=== PATIENT | female | born 1945 | race Caucasian/White ===

== ENCOUNTER → 2020-04-17 13:30 | Outpatient (CLI) | payer MEDICARE, OTHER, SELFPAY ==
--- NOTE | ~2020-04-17 | MM_ITS ---
EXAMINATION: MM screening christopher BI w wily HISTORY: Screening mammogram, history of left breast cancer TECHNIQUE: Craniocaudal and mediolateral oblique 3-D tomosynthesis images were obtained and synthetic 2-D images were generated. CAD analysis was submitted and interpreted. COMPARISON: 02/19/2019, 01/19/2018, 01/13/2017 BREAST PARENCHYMAL COMPOSITION: There are scattered areas of fibroglandular density. FINDINGS: There are stable lumpectomy changes of the left breast. There is no evidence of suspicious mass, calcification, or architectural distortion to suggest malignancy in either breast. There has be en no suspicious interval change. IMPRESSION: 1. No mammographic evidence of malignancy. 2. Recommend routine screening mammography in one year. BI-RADS Category 2: Benign finding(s). Reviewed, dictated and finalized at location A. GATION LEGAL ASSISTANT
== END ==
PROVIDERS: PCP Family Medicine; Visit Provider Nurse Practitioner
DX: Z12.31 Encounter for screening mammogram for malignant neoplasm of breast (principal)
CPT/HCPCS: 77063; 77067

== ENCOUNTER → 2021-06-08 14:16 | Outpatient (CLI) | payer MEDICARE, SELFPAY ==
--- NOTE | ~2021-06-08 | MM_ITS ---
EXAMINATION: MM screening christopher BI w wily HISTORY: Screening TECHNIQUE: Craniocaudal and mediolateral oblique 3-D tomosynthesis images were obtained and synthetic 2-D images were generated. CAD analysis was submitted and interpreted. COMPARISON: Comparison to multiple prior studies sequentially, with oldest reviewed study dated 12/16. BREAST PARENCHYMAL COMPOSITION: There are scattered areas of fibroglandular density. FINDINGS: There are developing asymmetries in the subareolar location of the right breast. The left b reast is stable without evidence for malignancy. IMPRESSION: 1. Developing right breast asymmetries. 2. Additional mammographic views and possible breast ultrasound are recommended. BI-RADS Category 0: Incomplete: Needs additional imaging evaluation. Reviewed, dictated and finalized at location A. IMPRESSION: 1. Developing right breast asymmetries. 2. Additional mammographic views and possible breast ultrasound are recommended . BI-RADS Category 0: Incomplete: Needs additional imaging evaluation.
--- NOTE | ~2021-06-08 | DEXA_ITS ---
Bone Density Report Name: FROILAN SPRINGER Age: 75 Sex: Female Ethnicity: White Date of : 1945 Indication: postmenopausal; screening for osteoporosis; height loss; prior fracture; Referring Provider: TAMI, ILDA Study: Bone densitometry was performed. Exam Date: June 08, 2021 Accession number: [id number] Bone Density: Region BMD T-score Z-score Classification AP Spine (L1-L4) 0.963 -0.8 1.5 Normal World Health Organization criteria for BMD impression classify patients as: Normal (T-score at or above -1.0), Osteopenia (T-score between -1.0 and -2.5), or Osteoporosis (T-score at or below -2.5). Previous Exams: Region Exam Age BMD T-score BMD Change BMD Change Date g/cm2 vs Baseline vs Previous AP Spine(L1-L4) 06/08/2021 75 0.963 -0.8 0.091 -0.018 02/19/2019 73 0.982 -0.6 0.109* 0.020 01/13/2017 71 0.961 -0.8 0.089* 0.029* 01/03/2015 69 0.932 -1.0 0.059* 0.108 05/20/2008 62 0.824 -2.0 -0.049 -0.049 05/13/2006 60 0.873 -1.6 *Denotes significance at 95% confidence level, LSC for AP Spine = 0.022 g/cm2 Clinical Information Provided by Patient: Has had a low trauma fracture Has used the following medications: Vitamin D, Calcium, MTV Patient maximum height was 64 Menopause Age: 47 No regular weight bearing exercise Drinks caffeinated beverages Onset of menses at age 15 Number of children 1 Impression: The patient has normal bone mass. The patient has risk factors, including: previous fracture. No significant bone loss was observed. Discussion: BONE DENSITY IS ABOVE THE MINIMUM DESIRABLE LEVEL AT ALL SKELETAL SITES TESTED. This patient?s bone mineral density is above the minimum desirable level (T-score -1.0 or better) at all sites measured. The patient should follow a healthful lifestyle (good nutrition with adequate calcium and vitamin D, and appropriate weight-bearing exercise). Follow-Up: Consider repeating this study in 5 years or sooner if there is some new clinical indication. Reported by: [facility] on 06/08/2021 2:37:00 PM. Reviewed, dictated and finalized at location ALee [facility]
== END ==
PROVIDERS: PCP Family Medicine; Visit Provider Nurse Practitioner
DX: Z12.31 Encounter for screening mammogram for malignant neoplasm of breast (principal); Z78.0 Asymptomatic menopausal state; R92.8 Other abnormal and inconclusive findings on diagnostic imaging of breast
CPT/HCPCS: 77063; 77067; 77080

== ENCOUNTER → 2021-06-25 14:03 | Outpatient (CLI) | payer MEDICARE, SELFPAY ==
--- NOTE | ~2021-06-25 | MMUS_ITS ---
EXAMINATION: MM diagnostic christopher RT w wily, US breast RT limited HISTORY: Developing right breast mammographic asymmetries reported on 06/08/2021 screening mammogram TECHNIQUE: Additional 3-D tomosynthesis images of were performed and synthetic 2-D images were genera shashank. CAD analysis was submitted and interpreted. High resolution breast ultrasound was performed. COMPARISON: None FINDINGS: MAMMOGRAPHIC FINDINGS: There is a 6.5 x 10 mm circumscribed opacity in the central right breast approximately 5 cm deep to t he nipple. The mammographic features including circumscribed margin and low density suggests benign p rocess, possibly a cyst. ULTRASOUND: . There is an oval parallel circumscribed 5 x 10 x 8 mm hypoechoic lesion without internal vascularit y, with no suspicious shadowing. There is some through-transmission. The sonographic features are con sistent with benign process. IMPRESSION: 1. Benign finding 2. Routine mammographic screening is recommended. BI-RADS Category 2: Benign finding(s). Reviewed, dictated and finalized at location A. IMPRESSION: 1. Benign finding 2. Routine mammographic screening is recommended. BI-RADS Category 2: Benign finding(s).
== END ==
PROVIDERS: PCP Family Medicine; Visit Provider Nurse Practitioner
DX: R92.8 Other abnormal and inconclusive findings on diagnostic imaging of breast (principal)
CPT/HCPCS: 76642; 77061; 77065; G0279

== ENCOUNTER → 2022-08-16 13:34 | Outpatient (CLI) | payer MEDICARE, SELFPAY ==
--- NOTE | ~2022-08-16 | MM_ITS ---
EXAMINATION: MM screening christopher BI w wily HISTORY: Screening mammogram TECHNIQUE: Craniocaudal and mediolateral oblique 3-D tomosynthesis images were obtained and synthetic 2-D images were generated. CAD analysis was submitted and interpreted. COMPARISON: June 25, 2021 diagnostic right mammogram and limited right breast ultrasound examination 06/08/2021, 04/17/2020, 02/19/2019 bilateral screening mammogram examinations BREAST PARENCHYMAL COMPOSITION: The breasts are heterogeneously dense, which may obscure small masses . FINDINGS: Stable postoperative changes from left partial mastectomy. Stable approximately 7 x 10 mm low-density circumscribed opacity in the central right breast since . Occasional bilateral benign calcifications. There is no evidence of suspicious mass, calcifi cation, or architectural distortion to suggest malignancy in either breast. There has been no suspici ous interval change. IMPRESSION: 1. Status post left partial mastectomy for breast cancer. No mammographic evidence of malignancy. 2. Recommend routine screening mammography in one year. BI-RADS Category 2: Benign finding(s). Reviewed, dictated and finalized at location A. IMPRESSION: 1. Status post left partial mastectomy for breast cancer. No mammographic evide nce of malignancy. 2. Recommend routine screening mammography in one year. BI-RADS Category 2: Benign finding(s).
== END ==
PROVIDERS: Visit Provider Obstetrics & Gynecology Gynecology
DX: Z12.31 Encounter for screening mammogram for malignant neoplasm of breast (principal)
CPT/HCPCS: 77063; 77067

== ENCOUNTER 2023-08-19 13:45 | Outpatient (CLI) | payer MEDICARE, SELFPAY ==
--- NOTE | ~2023-08-19 | MM_ITS ---
EXAMINATION: MM screening christopher BI w wily HISTORY: Screening TECHNIQUE: Craniocaudal and mediolateral oblique 3-D tomosynthesis images were obtained and synthetic 2-D images were generated. CAD analysis was submitted and interpreted. COMPARISON: Comparison to multiple prior studies sequentially, with oldest reviewed study dated 01/19/2018. BREAST PARENCHYMAL COMPOSITION: Not dense: There are scattered areas of fibroglandular density. FINDINGS: There is an enlarging right breast mass in the central aspect of the right breast, middle t hird. The left breast is stable without evidence for malignancy. IMPRESSION: 1. Enlarging right breast mass. 2. Additional mammographic views and possible breast ultrasound are recommended. BI-RADS Category 0: Incomplete: Needs additional imaging evaluation. Reviewed, dictated and finalized at location B. IMPRESSION: 1. Enlarging right breast mass. 2. Additional mammographic views and possible breast ultrasound are recommended . BI-RADS Category 0: Incomplete: Needs additional imaging evaluation.
== END 2023-08-19 13:46 ==
LOC: MICIMG 13:46
PROVIDERS: PCP Family Medicine; Visit Provider Nurse Practitioner
DX: Z12.31 Encounter for screening mammogram for malignant neoplasm of breast (principal); R92.8 Other abnormal and inconclusive findings on diagnostic imaging of breast
CPT/HCPCS: 77063; 77067

== ENCOUNTER 2023-09-17 09:42 | Outpatient (CLI) | payer MEDICARE, OTHER, SELFPAY ==
--- NOTE | ~2023-09-17 | MMUS_ITS ---
EXAMINATION: MM diagnostic christopher RT w wily, US breast RT limited HISTORY: Right breast mass TECHNIQUE: Additional 3-D tomosynthesis images of the right breast were performed and synthetic 2-D i mages were generated. CAD analysis was submitted and interpreted. High resolution limited right breas t ultrasound was performed. COMPARISON: 08/19/2023, 08/16/2022, 06/25/2021 BREAST PARENCHYMAL COMPOSITION:Not Dense. There are scattered areas of fibroglandular density. FINDINGS: MAMMOGRAPHIC FINDINGS: Spot compression views demonstrate a persistent low-density 1.1 cm ovoid mass in the central right br east, 5 cm posterior to the nipple. ULTRASOUND: At the 12:00 position right breast, 1 cm from the nipple, there is a 0.9 x 1.1 x 0.6 cm wider than ta ll circumscribed lesion, largely anechoic, but with possible focal mural nodularity. This corresponds with lesion seen on prior ultrasound dated 06/25/2021. IMPRESSION: 1.1 cm mildly complex cystic mass at the 12:00 position right breast, as detailed above, which corre lates with that seen on prior exam from 06/25/2021. Possible development of focal mural nodularity socorro lashon other mild internal echogenicity. This lesion is probably benign, however given the development o f mild complexity, 6 month follow-up ultrasound is recommended to reassess. BI-RADS category 3, probably benign findings. Reviewed, dictated and finalized at location . IMPRESSION: 1.1 cm mildly complex cystic mass at the 12:00 position right breast, as detai led above, which correlates with that seen on prior exam from 06/25/2021. Possib le development of focal mural nodularity versus other mild internal echogenicit y. This lesion is probably benign, however given the development of mild comple xity, 6 month follow-up ultrasound is recommended to reassess. BI-RADS category 3, probably benign findings.
== END 2023-09-17 09:43 ==
LOC: MICIMG 09:42
PROVIDERS: PCP Family Medicine; Visit Provider Obstetrics & Gynecology Gynecology
DX: R92.8 Other abnormal and inconclusive findings on diagnostic imaging of breast (principal)
CPT/HCPCS: 76642; 77061; 77065; G0279

== ENCOUNTER 2024-01-21 08:29 | Day surgery (SDC) | payer MEDICARE, SELFPAY ==
[2023-12-09 09:33] VITALS: BMI 32.2
[2024-01-02 11:12] VITALS: BMI 32.8
--- NOTE | 2024-01-20 14:06 | WPDANESEPPF ---
Anes - Initial Pre Proc Eval Procedure: Operation Date: 01/21/24 11:00 Proposed Procedures p Diagnostic Colonoscopy - Silas Vogt MD Date/Time: 01/20/24 14:06 Surgeon: Silas Vogt MD Pre Op Diagnosis: History of Colon Polyps Patient Data Age: 78 Gender: F Height: 1.6 m Weight: 84 kg Allergies Allergy/AdvReac Type Severity Reaction Status Date / Time sulfamethoxazole Allergy Intermediate hives Verified 01/06/24 13:04 [From Bactrim] trimethoprim [From Bactrim] Allergy Intermediate hives Verified 01/06/24 13:04 adhesive tape Allergy Mild RASH Verified 01/06/24 13:04 Penicillins Allergy Unknown Rash Verified 01/06/24 13:04 Home Medications Medication Instructions Recorded Confirmed Type calcium carbonate (Calcium 600) 1,200 mg PO BID 01/21/19 01/06/24 History cholecalciferol (vitamin D3) 50 2,000 unit PO DAILY 01/21/19 01/06/24 History mcg (2,000 unit) tablet (Vitamin D3) fluticasone propionate 50 1 spray intranasal BID 01/21/19 01/06/24 History mcg/actuation nasal spray,suspension (Flonase Allergy Relief) multivitamin (Daily Multi-Vitamin 1 tablet PO DAILY 01/21/19 01/06/24 History tablet) olopatadine 0.6 % nasal spray 2 spray intranasal BID 01/21/19 01/06/24 History (Patanase) omega 8-yaf-ova-fish oil 1,000 mg 1 cap PO DAILY 01/21/19 01/06/24 History (120 mg-180 mg) capsule (Fish Oil) vit C 50 mg-E 15 unit-zinc cit 4.5 2 tablet PO DAILY 01/21/19 01/06/24 History mg-lutein 2.5 mg-zeaxan chew tablet ([employer] [facility]) cyclosporine 0.05 % eye drops in a 1 drp ophthalmic (eye) BID 03/30/19 01/06/24 History dropperette (Restasis) fexofenadine 180 mg tablet 180 mg PO DAILY 03/30/19 01/06/24 History (Xin Allergy) nabumetone 1,000 mg tablet 500 mg PO BID PRN Pain 03/30/19 01/06/24 History ondansetron HCl 4 mg tablet 4 mg PO Q6H #18 tabs 05/21/22 01/06/24 Rx esomeprazole magnesium 40 mg See Rx Instructions .Route 03/20/23 01/06/24 Rx capsule,delayed release .COMPLEX #90 caps clotrimazole-betamethasone 1 1 applic topical BID #45 grams 05/12/23 01/06/24 Rx %-0.05 % topical cream mupirocin 2 % topical ointment 1 applic topical BID #22 grams 05/12/23 01/06/24 Rx amlodipine 10 mg tablet 10 mg PO DAILY #90 tabs 06/16/23 01/06/24 Rx buspirone 5 mg tablet 5 mg PO BID PRN Anxiety #60 tabs 07/28/23 01/06/24 Rx metformin 500 mg tablet,extended See Rx Instructions .Route 08/25/23 01/06/24 Rx release 24 hr .COMPLEX #90 tabs spironolactone 25 mg tablet 25 mg PO DAILY #90 tabs 09/15/23 01/06/24 Rx dicyclomine 20 mg tablet 20 mg PO TID #270 tabs 10/07/23 01/06/24 Rx pravastatin 40 mg tablet 40 mg PO HS #90 tabs 10/08/23 01/06/24 Rx losartan 100 mg tablet 100 mg PO DAILY #90 tabs 11/19/23 01/06/24 Rx metoprolol succinate 50 mg 50 mg PO DAILY #90 tabs 11/25/23 01/06/24 Rx tablet,extended release 24 hr escitalopram oxalate 10 mg tablet 10 mg DAILY 01/02/24 01/06/24 History fluocinolone acetonide oil 0.01 % 5 drp EACH EAR BID PRN Itching 01/02/24 01/06/24 History ear drops Patient hx anesthesia problems: none Family hx anesthesia problems: none Results Review: All pre-operative results and documents have been reviewed as part of the pre-operative evaluation. 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 Surgical History Surgical History History of cholecystectomy History of lumpectomy History of sinus surgery History of tubal ligation Family History Family History Father Hypertension Family history of elevated blood lipids Mother Hypertension Family history of coronary artery disease Family history of elevated blood lipids Family history of heart disease in male family member before age 55 Sibling Family history of coronary artery disease Depression Family history of heart disease in male family member before age 55 Other Diabetes mellitus Family history of alcoholism Family history of gout Social History Social History Social History: Smoking packs per day: 2 Smoking cigarettes per day: 40.0 Years smoked: 20 Smoking pack-years: 40.00 Smoking status: Never smoker Tobacco type: cigarettes Second hand tobacco smoke exposure: No Smoking end date: 03/17/96 Alcohol intake: never Alcohol use details: rare Substance use: never Substance use type: does not use Lack of Transportation: No Lack of Food: Never True Current Housing: I Have Housing Concerned About Future Housing: No Difficulty Paying Gas/Electric Bills: No Difficulty Paying for Meds: No Currently Unemployed: YES Education: Decline to Answer Difficulty w/ Childcare or Family Care: No Living arrangements: with family Occupation/Education: retired Gender identity (if verbalized by the patient): Female Sexual Orientation (if Verbalized by the Patient): Straight or Heterosexual Spiritual care concerns: No Anes - Eval Final PreProcedure Day of Procedure 01/20/24 14:06 Patient weight: obese Heart: regular rate and rhythm Lungs: clear to auscultation Airway: Mallampati scale class II Neurological: alert and oriented Last oral intake: >/= 8 hours ASA classification: III Emergent: no Anesthetic plan: proceed Anesthesia type and monitoring: general GIVS and standard monitoring Results Review: All pre-operative results and documents have been reviewed as part of the pre-operative evaluation. Informed Consent: The patient's anesthetic plan and its attendant risks and benefits were discussed with the patient/family/POA. Questions were solicited and answers provided to the satisfaction of the patient/family/POA.
[2024-01-21 10:00] VITALS: BP 137/61; PULSE 65; RESP 16; TEMP 36.8; O2SAT 96
[2024-01-21] MEDS: LACTATED RINGERS 1,000 ML 150 ML IV CONT (10:26)
[2024-01-21 10:40] LABS: Glucose Point of Care 97 mg/dl (65-105)
--- NOTE | 2024-01-21 10:59 | PM.HPGS ---
History of Present Illness History of Present Illness Consent: Risks, benefits, and alternatives have been discussed and questions answered. Patient agrees to proceed with procedure. Chief complaint: History of Colon Polyps Narrative: Ebony Chambers is a 78 year old female presents for screening colonoscopy. Patient's current weight appetite and bowel movements are normal. Patient denies abdominal pain. She has had no bleeding. Family history noncontributory. Previous colonoscopy in 2019 did reveal a benign adenomatous colon polyp. 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 Surgical History Surgical History History of cholecystectomy History of lumpectomy History of sinus surgery History of tubal ligation Family History Family History Father Hypertension Family history of elevated blood lipids Mother Hypertension Family history of coronary artery disease Family history of elevated blood lipids Family history of heart disease in male family member before age 55 Sibling Family history of coronary artery disease Depression Family history of heart disease in male family member before age 55 Other Diabetes mellitus Family history of alcoholism Family history of gout Social History Social History Social History: Smoking packs per day: 2 Smoking cigarettes per day: 40.0 Years smoked: 20 Smoking pack-years: 40.00 Smoking status: Never smoker Tobacco type: cigarettes Second hand tobacco smoke exposure: No Smoking end date: 03/17/96 Alcohol intake: never Alcohol use details: rare Substance use: never Substance use type: does not use Lack of Transportation: No Lack of Food: Never True Current Housing: I Have Housing Concerned About Future Housing: No Difficulty Paying Gas/Electric Bills: No Difficulty Paying for Meds: No Currently Unemployed: YES Education: Decline to Answer Difficulty w/ Childcare or Family Care: No Living arrangements: with family Occupation/Education: retired Gender identity (if verbalized by the patient): Female Sexual Orientation (if Verbalized by the Patient): Straight or Heterosexual Spiritual care concerns: No Meds Home Medications and Allergies Home Medications Medication Instructions Recorded Confirmed Type calcium carbonate (Calcium 600) 1,200 mg PO BID 01/21/19 01/21/24 History cholecalciferol (vitamin D3) 50 2,000 unit PO DAILY 01/21/19 01/21/24 History mcg (2,000 unit) tablet (Vitamin D3) fluticasone propionate 50 1 spray intranasal BID 01/21/19 01/21/24 History mcg/actuation nasal spray,suspension (Flonase Allergy Relief) multivitamin (Daily Multi-Vitamin 1 tablet PO DAILY 01/21/19 01/21/24 History tablet) olopatadine 0.6 % nasal spray 2 spray intranasal BID 01/21/19 01/21/24 History (Patanase) omega 5-lbr-gke-fish oil 1,000 mg 1 cap PO DAILY 01/21/19 01/21/24 History (120 mg-180 mg) capsule (Fish Oil) vit C 50 mg-E 15 unit-zinc cit 4.5 2 tablet PO DAILY 01/21/19 01/21/24 History mg-lutein 2.5 mg-zeaxan chew tablet ([employer] [facility]) cyclosporine 0.05 % eye drops in a 1 drp ophthalmic (eye) BID 03/30/19 01/21/24 History dropperette (Restasis) fexofenadine 180 mg tablet 180 mg PO DAILY 03/30/19 01/21/24 History (Xin Allergy) nabumetone 1,000 mg tablet 500 mg PO BID PRN Pain 03/30/19 01/21/24 History ondansetron HCl 4 mg tablet 4 mg PO Q6H #18 tabs 05/21/22 01/21/24 Rx esomeprazole magnesium 40 mg See Rx Instructions .Route 03/20/23 01/21/24 Rx capsule,delayed release .COMPLEX #90 caps clotrimazole-betamethasone 1 1 applic topical BID #45 grams 05/12/23 01/21/24 Rx %-0.05 % topical cream mupirocin 2 % topical ointment 1 applic topical BID #22 grams 05/12/23 01/21/24 Rx amlodipine 10 mg tablet 10 mg PO DAILY #90 tabs 06/16/23 01/21/24 Rx buspirone 5 mg tablet 5 mg PO BID PRN Anxiety #60 tabs 07/28/23 01/21/24 Rx metformin 500 mg tablet,extended See Rx Instructions .Route 08/25/23 01/21/24 Rx release 24 hr .COMPLEX #90 tabs spironolactone 25 mg tablet 25 mg PO DAILY #90 tabs 09/15/23 01/21/24 Rx dicyclomine 20 mg tablet 20 mg PO TID #270 tabs 10/07/23 01/21/24 Rx pravastatin 40 mg tablet 40 mg PO HS #90 tabs 10/08/23 01/21/24 Rx losartan 100 mg tablet 100 mg PO DAILY #90 tabs 11/19/23 01/21/24 Rx metoprolol succinate 50 mg 50 mg PO DAILY #90 tabs 11/25/23 01/21/24 Rx tablet,extended release 24 hr escitalopram oxalate 10 mg tablet 10 mg DAILY 01/02/24 01/21/24 History fluocinolone acetonide oil 0.01 % 5 drp EACH EAR BID PRN Itching 01/02/24 01/21/24 History ear drops Allergies Allergy/AdvReac Type Severity Reaction Status Date / Time sulfamethoxazole Allergy Intermediate hives Verified 01/21/24 10:55 [From Bactrim] trimethoprim [From Bactrim] Allergy Intermediate hives Verified 01/21/24 10:55 adhesive tape Allergy Mild RASH Verified 01/21/24 10:55 Penicillins Allergy Unknown Rash Verified 01/21/24 10:55 Vital Signs Vital Signs - 24 hr 01/21/24 10:00 Temperature 98.2 F Pulse Rate 65 Respiratory Rate 16 Blood Pressure 137/61 Pulse Oximetry 96 Oxygen Delivery Room Air Exam Narrative: Physical exam reveals patient to be alert. Vital signs stable. HEENT exam is unremarkable. Patient is anicteric. Lungs are clear to auscultation and to percussion. Heart is without murmur or extra sounds. Abdomen bowel sounds are present soft nontender with no organomegaly. Digital external rectal exam is normal. Assessment and Plan Assessment and plan (1) History of colon polyps: Code(s): Z86.010 - Personal history of colon polyps Status: Acute Assessment and Plan: Patient has a history of a benign adenomatous colon polyp removed from the colon 2018. Plan for surveillance colonoscopy at this time. Further recommendations may be given after endoscopy.
[2024-01-21 11:53] VITALS: BP 108/61; PULSE 61; RESP 16; O2SAT 93
[2024-01-21 12:03] VITALS: BP 106/85; PULSE 75; RESP 16; O2SAT 93
[2024-01-21 12:13] VITALS: BP 140/52; PULSE 63; RESP 16; O2SAT 98
--- NOTE | 2024-01-21 12:27 | WPDANESPN ---
Anes - Prog Note Post-Op Date/Time: 01/21/24 12:27 Cardiovascular status: normal Respiratory status: normal Airway patency: baseline Mental status: baseline Post-Op hydration status: normal Vital Signs: Last Vital Signs Temp 36.8 C 01/21/24 10:00 Pulse 63 01/21/24 12:13 Resp 16 01/21/24 12:13 BP 140/52 L 01/21/24 12:13 Pulse Ox 98 01/21/24 12:13 O2 Del Method Room Air 01/21/24 12:13 Pain Score (VAS): 0 I/O: Intake & Output 01/20/24 01/21/24 01/21/24 23:59 07:59 15:59 Intake Total 200 Balance 200 01/21/24 10:31 POC Capillary Glucose 97 Post-procedural complaints: none Patient Feedback: Patient satisfied with anesthetic care. Other Findings: Patient vital signs back to baseline. Patient denies nausea and vomiting. Patient's pain under control. Patient OK for discharge.
== END 2024-01-21 12:32 | disposition home or self-care (01) ==
PROVIDERS: PCP Family Medicine; Visit Provider Internal Medicine Gastroenterology
PROC: 0DJD8ZZ Inspection of Lower Intestinal Tract, Via Natural or Artificial Opening Endoscopic (ICD-10-PCS; CPT 45378; principal; 2024-01-21 11:00)
DX: Z86.0100 Personal history of colon polyps, unspecified (principal); D12.3 Benign neoplasm of transverse colon; K57.30 Diverticulosis of large intestine without perforation or abscess without bleeding; K64.8 Other hemorrhoids
CPT/HCPCS: 45380

== ENCOUNTER 2024-01-21 12:40 | Outpatient (NON) | payer MEDICARE, SELFPAY | END 2024-01-21 12:41 | disposition home or self-care (01) | LOC: ANHLAB 01-22 12:43 | PROVIDERS: PCP Family Medicine; Visit Provider Internal Medicine Gastroenterology | DX: Z12.11 Encounter for screening for malignant neoplasm of colon (principal); Z86.0100 Personal history of colon polyps, unspecified | CPT/HCPCS: 88305 ==

== ENCOUNTER 2024-01-23 12:18 | Outpatient (CLI) | payer MEDICARE, SELFPAY | END 2024-01-23 12:19 | disposition home or self-care (01) | LOC: ANHPFT 12:22 | PROVIDERS: PCP Family Medicine; Visit Provider Family Medicine | DX: R05.3 Chronic cough (principal) | CPT/HCPCS: 94060; 94726; 94729 ==

== ENCOUNTER 2024-03-19 12:49 | Outpatient (CLI) | payer MEDICARE, SELFPAY ==
--- NOTE | ~2024-03-19 | US_ITS ---
EXAMINATION TYPE: US breast RT limited COMPARISON: 09/17/2023, 06/25/2021 REASON FOR STUDY: Unspecified lump in the right breast, unspecified quadrant TECHNIQUE: Targeted sonographic evaluation of the right breast was performed. INTERPRETATION: At the 12:00 position right breast, in the periareolar location, there is a 9 x 6 x 10 mm complex cys t, with areas of mural nodularity or soft tissue. No distinct vascular flow evident on color imaging. IMPRESSION: Stable small complex cystic lesion in the right perihilar region, as detailed above. Relative stabili ty since June 2021 is most compatible with a benign lesion. BI-RADS CATEGORY: BI-RADS 2: Benign Reviewed, dictated and finalized at location . R CARD MAKER IMPRESSION: Stable small complex cystic lesion in the right perihilar region, as detailed a stevie. Relative stability since June 2021 is most compatible with a benign lesi on. BI-RADS CATEGORY: BI-RADS 2: Benign
== END 2024-03-19 12:50 | disposition home or self-care (01) ==
LOC: MICIMG 12:51
PROVIDERS: PCP Family Medicine; Visit Provider Obstetrics & Gynecology Gynecology
DX: N63.10 Unspecified lump in the right breast, unspecified quadrant (principal); R92.8 Other abnormal and inconclusive findings on diagnostic imaging of breast
CPT/HCPCS: 76642

== ENCOUNTER 2024-07-08 13:42 | Outpatient (CLI) | payer MEDICARE, SELFPAY ==
--- NOTE | ~2024-07-08 | DEXA_ITS ---
Bone Density Report Name: FROILAN SPRINGER Age: 78 Sex: Female Ethnicity: White Date of : 1945 Indication: postmenopausal; screening for osteoporosis; parental hip fracture; height loss; prior fracture; cancer; Referring Provider: TAMI, ILDA Study: Bone densitometry was performed. Exam Date: July 08, 2024 Accession number: [id number] Bone Density: Region BMD T-score Z-score Classification AP Spine(L1-L4) 0.977 -0.6 1.9 Normal World Health Organization criteria for BMD impression classify patients as: Normal (T-score at or above -1.0), Osteopenia (T-score between -1.0 and -2.5), or Osteoporosis (T-score at or below -2.5). Clinical Information Provided by Patient: Has had a low trauma fracture Parent has had a hip fracture Is being treated for osteoporosis Has used the following medications: Actonel (i.e. risedronate), Fosamax (i.e. alendronate), Vitamin D, Calcium Has the following medical conditions: Cancer Patient maximum height was 64 Menopause Age: 44 No regular weight bearing exercise Drinks caffeinated beverages Onset of menses at age 15 Number of children 1 Impression: The patient has normal bone mass. The patient has risk factors, including: parental hip fracture, previous fracture. Discussion: It is important to ask patients whether they are taking their medications and to encourage continued and appropriate compliance with their osteoporosis therapies to reduce fracture risk. It is also important to review their risk factors and encourage appropriate calcium and vitamin D intakes, exercise, fall prevention and other lifestyle measures. Follow-Up: Consider a repeat BMD and Vertebral Fracture Assessment (VFA) exam in 2 years or sooner if medically necessary, to reassess this patient's status. Reported by: JANUARY on 07/08/2024 2:18:00 PM. Reviewed, dictated and finalized at location [facility]
--- OUTSIDE RECORDS SUMMARY | 2024-07-08 14:46 | XMS_ITS | Continuity of Care Document ---
Author Organization [facility] Address [address] [place] [address] Phone Care Team Providers Care Commercial Driver Name Role Phone Leodan Aburto Unavailable Unavailable Procedures Procedure Date Office/outpatient Visit, Est Post-op Follow-up Visit Post-op Follow-up Visit Post-op Follow-up Visit Remove Cataract, Insert Lens Presbyopia Correcting IOL [facility] Office/outpatient Visit, Est Eye Exam Established Pt Eye Exam Established Pt Post-op Follow-up Visit Post-op Follow-up Visit Remove Cataract, Insert Lens PreSurg Dilated Fundus Eval Performed Se PreSurg Measurements/IOL Calc Performed And Docum Presbyopia Correcting IOL Office/outpatient Visit, Est [facility] Refraction Advance Directives Directive Yes / No Effective Date File Name No Information Encounters Encounter Description Practice Location Reason(s) For Visit Diagnoses Date Provider Providers Copied on Encounter Office/outpat ient Visit, [place] [facility], [address], [place], [place], [id number], [place] tel:[phone] [facility] No Information Nov-2 3-201 0 Doisy Edward. [address], [place], [place], [facility], [place]. tel:[phone] [facility], [address], [place], [place], [id number], [place] tel:[phone] [facility] No Information Mar-1 0-201 0 Doisy Edamari. [address], [place], [place], [facility], [place]. tel:[phone] [facility], [address], [place], [place], [id number], [place] tel:[phone] [facility] No Information Feb-2 4-201 0 Doisy Edamari. [address], [place], [place], [facility], [place]. tel:[phone] [facility], [address], [place], [place], [id number], [place] tel:[phone] [facility] No Information Feb-1 0-201 0 Doisy Edamari. [address], [place], [place], [facility], [place]. tel:[phone] [facility], [address], [place], [place], [address], [place] tel:[phone] [facility] No Information Feb-0 9-201 0 Doisy Edamari. [address], [place], [place], [facility], [place]. tel:[phone] [facility], [address], [place], [place], [address], [place] tel:[phone] [facility] No Information Pete-0 5-201 0 Doisy Edamari. [address], [place], [place], [facility], [place]. tel:[phone] Referring Provider: [facility]an Reich, [facility] [address], [place], [place], [facility]. tel:[phone] [facility], [address], [place], [place], [address], [place] tel:[phone] [facility] [place] No Information Dec-1 1-200 9 Criselda [facility]cocer. [facility] , [address], [place], [place], [facility], [place]. tel:[phone] Referring Provider: Leodan Reich, [facility] [address], [place], [place], [facility]. tel:[phone] Office/outpat ient Visit, [facility], [address], [place], [place], [address], [place] tel:[phone] [facility] [place] No Information Dec-1 2-200 8 Alysa Junito. [address] [place], [place] [address], [place], [place], [facility], [place]. tel:[phone] [facility], [address], [place], [place], [address], [place] tel:[phone] [facility] [place] No Information Leonel-2 7-200 8 Criselda Alcocer. [address] [place], [place] [address] , [address], [place], [place], [facility], [place]. tel:[phone] [facility], [address], [place], [place], [id number], [place] tel:[phone] [facility] [place] No Information Apr- 3-200 8 Criselda Alcocer. [address] [place], [place] [address] , [address], [place], [place], [facility], [place]. tel:[phone] [facility], [address], [place], [place], [address], [place] tel:[phone] [facility] No Information Sep-2 8-200 7 Doisy Edward. [address] [facility] [address], [place], [facility], [place]. tel:[phone] [facility], [address], [place], [place], [address], [place] tel:[phone] [facility] No Information Sep-1 4-200 7 Doisy Edward. [address], [place], [facility], [place]. tel:[phone] [facility], [address], [place], [place], [id number], [place] tel:[phone] [facility] No Information Sep-1 3-200 7 Doisy Edward. [address] [facility] [address], [place], [facility], [place]. tel:[phone] Office/outpat ient Visit, [facility], [address], [place], [place], [address], [place] tel:[phone] [facility] No Information Aug-2 9-200 7 Doisy Edward. [address] [facility] [address], [place], [facility], [place]. tel:[phone] Referring Provider: Silas Sandoval OD A, [address], [place], [place], [facility]. tel:[phone] [facility], [address], [place], [place], [address], [place] tel:[phone] [facility] No Information Leonel-2 3-200 7 Sandoval OD Silas. [address] [facility] [address] , [address], [place], [place], [facility], [place]. tel:[phone] Family History Family Member Type Diagnosis Age At Onset No Information Payers Payer name Insurance type Covered libertarian ID Authorluis albertoa kisha(s) [place] [id number] Social History Type Description Quantity Date Captured Comments Sex Female Smoking Status No Information Chief Complaint And Reason For Visit No Information Reason For Referral Reason For Referral No Information History Of Present Illness Encounter Date Complaint History Of Prese nt Illness No Information Functional Status Date Functional Assessmen t No Information Instructions Date Instruction Additional Infor mation No Information Assessments Type Assessment Date No Information Patient Care Teams Name Effective Dates (start - stop) Status Members No Information
--- OUTSIDE RECORDS SUMMARY | 2024-07-08 14:46 | XMS_ITS | Encounter Summary ---
Author Organization [facility] Address [address] [place] [address] Phone Care Team Providers Care Curriculum Coach Name Role Phone Eren Greenberg MD Primary Care Provider Gregory Michaels MD Unavailable [phone] Gena Chacon TEAR DOWN WORKER Unavailable [phone] Encounter Details Date Type Department Care Team (Latest Contact Info) Description 06/08/2021 Orders Only [facility] Scanning, Provider Social History Tobacco Use Types Packs/Day Years Used Date Smoking Tobacco: Former Cigarettes Q uit: 1997 Smokeless Tobacco: Never Alcohol Use Standard Drinks/Week Comments Yes 0 (1 standard drink = 0.6 oz pur e alcohol) rare Comments Unknown Sex and Gender Information Value Date Recorded Sex Assigned at Not on file 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[employer] Gender Identity Not on file Sexual Orientation Not on file documented as of this encounter Plan of Treatment Not on file documented as of this encounter Procedures Procedure Name Priority Date/Time Associated Diagnosis Comments SCAN - RADIOLOGY/IMAGING 06/08/2021 documented in this encounter Results * SCAN - RADIOLOGY/IMAGING (06/08/2021) Anatomical Region Laterality Modality Other us Provider Scanning Final Result documented in this encounter Visit Diagnoses Not on filedocumented in this encounter Care Teams Curriculum Coach Relationship Specialty Start Date End Date Eren Greenberg MD [address] [facility] [address] [place] [address] PCP - General Family Medicine 01/01/18 Gregory Michaels MD [address] [place] [address] Consulting Physician Medical Oncology 04/27/20 Gena Chacon NP [address] [facility] [address] [place] [address] Nurse Practitioner Medical Oncology 06/26/21 documented as of this encounter
--- OUTSIDE RECORDS SUMMARY | 2024-07-08 14:47 | XMS_ITS | Referral Summary ---
Author Organization [facility] Address [address] [place] [address] Phone Care Team Providers Care Enrober Tender Name Role Phone Eren Greenberg MD Primary Care Provider Gregory Michaels MD Unavailable [phone] SpoljaGena herman PMO PROJECT MANAGER Unavailable [phone] Allergies Active Allergy Reactions Criticality Noted Date Comments Adhesive Rash Medium 10/03/2020 Adhesive Tape-Silicones Nickel Penicillins Hives High 10/03/2020 Sulfa (Sulfonamide Antibiotics) Hives High 09/15 Medications amLODIPine (NORVASC) 10 mg tablet Take 1 tablet (10 mg total) by mouth daily 3 8 Active dicyclomine (BENTYL) 20 mg tablet Take 1 tablet (20 mg total) by mouth 3 (three) times a day 0 8 Active escitalopram (LEXAPRO) 10 mg tablet Take 1 tablet (10 mg total) by mouth daily [address] (NexIUM) 40 mg capsule Take 1 capsule (40 mg total) by mouth daily 2 8 Active hydroCHLOROthiazid e (HYDRODIURIL) 50 mg tablet Take 1 tablet (50 mg total) by mouth daily 2 8 Active metFORMIN XR (GLUCOPHAGE XR) 500 mg 24 hr tablet Take 1 tablet (500 mg total) by mouth daily 2 8 Active metoprolol XL (TOPROL-XL) 25 mg 24 hr tablet Take 1 tablet (25 mg total) by mouth daily 2 8 Active mupirocin (BACTROBAN) 2 % ointment APPLY A SMALL AMOUNT TO THE AFFECTED AREA THREE TIMES DAILY 5 8 Active olopatadine 0.6 % spray,non-aerosol 8 Active ondansetron ODT (ZOFRAN-ODT) 4 mg disintegrating tablet as needed 2 8 Active pravastatin (PRAVACHOL) 40 mg tablet Take 1 tablet (40 mg total) by mouth daily 2 8 Active valsartan (DIOVAN) 160 mg tablet Take 160 mg by mouth daily. 2 8 Active fluticasone (FLONASE) 50 mcg/actuation nasal spray Administer 1 spray into each nostril daily Active busPIRone (BUSPAR) 10 mg tabletIndications: Generalized Anxiety Disorder Take 0.5 tablets (5 mg total) by mouth as needed Active RESTASIS 0.05 % ophthalmic emulsion INSTILL 1 DROP INTO BOTH EYES TWICE A DAY 3 9 Active UNABLE TO FIND 2 (two) times a day Med Name: Nebumeton 500mg Active olmesartan (BENICAR) 20 mg tablet Take 1 tablet (20 mg total) by mouth daily 1 Active ondansetron (ZOFRAN) 4 mg tablet TAKE 1 TABLET BY MOUTH EVERY 6 HOURS 0 Active busPIRone (BUSPAR) 5 mg tablet TAKE 1/2 TABLET BY MOUTH TWICE DAILY NEEDED FOR ANXIETY 1 Active melatonin 5 mg capsule Take by mouth Active fexofenadine (LARRY) 180 mg tablet Take 1 tablet (180 mg total) by mouth daily Active multivit with iron,minerals (SPECTRAVITE ORAL) Take by mouth Active docosahexaenoic acid/epa (FISH OIL ORAL) Take by mouth Active antiox.mv no.10/omeg3s/lut/z ea (I-CAPS ORAL) Take by mouth Active CALCIUM ORAL Take by mouth Act barrett cranberry fruit concentrate (AZO CRANBERRY ORAL) Take by mouth Active cholecalciferol, vitamin D3, (VITAMIN D3 ORAL) Take by mouth Active cromolyn (NASALCHROM) 5.2 mg/spray (4 %) nasal sprayIndications:A llergic Rhinitis Administer into each nostril 4 (four) times a day Active losartan (COZAAR) 25 mg tablet Take 1 tablet (25 mg total) by mouth daily Active Active Problems Problem Noted Date Diagnosed Date 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, estrogen receptor positive (CMS/HCC) 01/22/2018 Cancer Staging:Pathologic stage from 08/25/1997: pT2, pN0(sn), cM0, G3, ER: Positive, NC: Unknown, HER2: Unknown - Signed by Florencio Astorga MD on 01/26/2018 Clinical: Unsigned Hypertension 07/31/2010 Overview (06/27/2017): Description: Hypertension Immunizations Immunization Administration Dates Next Due Influenza, Trivalent, High D ose, Split, Preservative Free, Intramuscular 12/03/2018,12/14/2017,12/01/2016,11/18 Influenza, Unspecified 12/26/2017 Pfizer SARS-CoV-2 Monovalent Vaccination (12+ Yrs) PURPLE 12/27/2020,05/20/2020,04/29/2020 Pneumococcal Conjugate PCV 13 01/26/2017 ZOSTER LIVE 01/26/2013 Social History Tobacco Use Types Packs/Day Years Used Date Smoking Tobacco: Former Cigarettes Q uit: 1997 Smokeless Tobacco: Never Alcohol Use Standard Drinks/Week Comments Yes 0 (1 standard drink = 0.6 oz pur e alcohol) rare Personal Safety Answer Date Recorded Getting School Help Needed Not on file 05/11 Comments Unknown Sex and Gender Information Value Date Recorded Sex Assigned at Not on file 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 Gender Identity Not on file Sexual Orientation Not on file Last Filed Vital Signs Vital Sign Reading Time Taken Comments Blood Pressure 132/79 06/25/2022 1:15 PM CDT Pulse 100 06/25/2022 1:15 PM CDT Temperature 37 C (98.6 F) 06/25/2022 1:15 PM CDT Respiratory Rate 18 06/25/2022 1:15 PM CDT Oxygen Saturation 95% 06/25/2022 1:15 PM CDT Inhaled Oxygen Concentration - - Weight 87.7 kg (193 lb 6.4 oz) 06/25/2022 1:15 P M CDT Height 161.3 cm (5' 3.5 ) 06/25/2022 1:15 PM CDT Body Mass Index 33.72 06/25/2022 1:15 PM CDT Plan of Treatment Not on file Insurance [facility]IC[facility] AETNA MEDICARE AET AETNA [facility] AETNA MEDICARE Care Teams Enrober Tender Relationship Specialty Start Date End Date Eren Greenberg MD [address] [address] PCP - General Family Medicine 01/01/18 Gregory Michaels MD [address] [address] Consulting Physician Medical Oncology 04/27/20 Gena Chacon NP [address] [address] Nurse Practitioner Medical Oncology 06/26/21
--- OUTSIDE RECORDS SUMMARY | 2024-07-08 14:47 | XMS_ITS | Clinical Summary ---
Author Organization [facility] Address [address] [place] [address] Phone Care Team Providers Care Vault Keeper Name Role Phone Eren Greenberg MD Primary Care Provider Gregory Michaels MD Unavailable [phone] SpoljaGena herman STORE MERCHANDISER Unavailable [phone] Allergies Active Allergy Reactions Criticality Noted Date [...] 08/25/1997: pT2, pN0(sn), cM0, G3, ER: Positive, [place]: Unknown, HER2: Unknown - Signed by Florencio Astorga MD on 01/26/2018 Clinical: Unsigned Hypertension 07/31/2010 Overview (06/27/2017): Description: Hypertension Immunizations Immunization Administration Dates Next Due Influenza, Trivalent, High D ose, Split, Preservative Free, Intramuscular 12/03/2018,12/14/2017,12/01/2016,11/18 Influenza, Unspecified 12/26/2017 Pfizer SARS-CoV-2 Monovalent Vaccination (12+ Yrs) PURPLE 12/27/2020,05/20/2020,04/29/2020 Pneumococcal Conjugate PCV 13 01/26/2017 ZOSTER LIVE 01/26/2013 Surgical History Surgery Date Site/Laterality Comments BREAST BIOPSY BREAST LUMPECTOMY CHOLECYSTECTOMY COLONOSCOPY 03/17/2018 - 03/16/2019 polyps repeat in 5 year Medical History Medical History Date Comments Breast cancer (HCC) Hypertension Hypercholesteremia IBS (irritable bowel syndrome) Anxiety Family History Medical History Relation Name Comments Heart disease Brother Breast cancer Father's Sister Diabetes Mother Heart disease Mother Relation Name Status Comments Brother Father's Sister Mother Social History Tobacco Use Types Packs/Day Years [...] on file 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 Gender Identity Not on file Sexual Orientation Not on file Obstetrics History Last Filed Vital Signs Vital Sign Reading [...] 06/25/2022 1:15 PM CDT Plan of Treatment Health Maintenance Due Date Last Done Comments Depression Screening 1945 Fall Risk Assessment 1945 Hepatitis C Screening 1945 Osteoporosis Screening-Bone Density Scan 1945 DTaP/Tdap/Td Vaccine (1 - Tdap) 12/18/1958 Hepatitis B Screening 12/18/1965 Well Visit 65+ 12/18/2012 Zoster Vaccine (2 of 3) 03/23/2013 01/26/2013 Pneumococcal vaccine 65+ (2 of 2 - PPSV23) 01/26/2018 01/26/2017 Covid-19 Vaccine (4 - 2023-2 5 season) 2023 12/27/2020, 05/20/2020, 04/29/2020 Influenza Vaccine (#1) 2023 9, 12/26/2017, 12/14/2017, Additional history exists [facility]NA MEDICARE AETNA AETNA [facility] AETNA MEDICARE Care Teams Vault Keeper Relationship Specialty Start Date End Date Eren Greenberg MD [address] [facility] [address] [place] [address] PCP - General Family Medicine 01/01/18 Gregory Michaels MD [address] [facility] [address] [place] [address] Consulting Physician Medical Oncology 04/27/20 Gena Chacon NP [address] [facility] [address] [facility] [address] [place] [address] Nurse Practitioner Medical Oncology 06/26/21
== END 2024-07-08 13:43 | disposition home or self-care (01) ==
PROVIDERS: PCP Family Medicine; Visit Provider Nurse Practitioner
DX: Z78.0 Asymptomatic menopausal state (principal)
CPT/HCPCS: 77080

== ENCOUNTER 2025-02-17 13:41 | Outpatient (CLI) | payer MEDICARE, SELFPAY ==
--- NOTE | ~2025-02-17 | MM_ITS ---
EXAMINATION: MM screening christopher BI w wily HISTORY: Screening. TECHNIQUE: Craniocaudal and mediolateral oblique 3-D tomosynthesis images were obtained and synthetic 2-D images were generated. CAD analysis was submitted and interpreted. COMPARISON: 2022 and 2020 BREAST PARENCHYMAL COMPOSITION: Not Dense: There are scattered areas of fibroglandular FINDINGS: No suspicious masses are seen. There are no suspicious calcifications. No unexplained architectural distortion is seen. There are no skin or nipple abnormalities identified. There is no adenopathy seen on the images submitted. IMPRESSION: No mammographic evidence to suggest malignancy is seen. The patient may return to screening mammography as per ACR guidelines. BI-RADS 1 - Negative. Reviewed, dictated and finalized at location C. R ANALYST
== END 2025-02-17 13:42 | disposition home or self-care (01) ==
LOC: MICIMG 13:41
PROVIDERS: PCP Family Medicine; Visit Provider Nurse Practitioner
DX: Z12.31 Encounter for screening mammogram for malignant neoplasm of breast (principal)
CPT/HCPCS: 77063; 77067